=== PATIENT | male | born 1975 | race Caucasian/White ===

== ENCOUNTER 2019-09-25 18:39 | Day surgery (SDC) | payer BC ==
[~2019-09-25 18:39] MED LIST: Dexamethasone 20 MG/5 ML VIAL ONE; EPHEDRINE 25 MG/5 ML SYRINGE ONE; Glycopyrrolate 0.2 MG/ML 5 ML SYRINGE ONE; Ketorolac Tromethamine 30 MG/ML VIAL ONE; Lidocaine 1% PF 5 ML VIAL ONE; Ondansetron PF 4 MG/2 ML Vial ONE; PROPOFOL 200 MG/20 ML VIAL ONE; Rocuronium Bromide 10 MG/ML (10ML VIAL) ONE; Succinylcholine Chloride 20 MG/ML 10 ml SYRINGE FS ONE
[2019-09-25] MEDS ORDERED: Bacitracin Zinc Ointment 30 gm TUBE ONE (20:35)
[2019-09-25] MEDS ORDERED: Sodium Chloride 0.9% 30 ML ONE ×2 (20:35→22:17)
[2019-09-25] MEDS ORDERED: Adacel (T-DAP) 0.5 ML SYRINGE ONE (20:37)
--- NOTE | 2019-09-25 20:40 | RAD ---
LEFT INDEX FINGER RADIOGRAPHS THREE VIEWS: 09/25/19 PROVIDED CLINICAL HISTORY: Laceration. FINDINGS: On the lateral view, there is material of increased density seen within the soft tissues overlying th e dorsal aspects of the middle phalanx of the index digit. There is a somewhat deficit appearance to the underlying cortical bone, which may reflect osseous injury. Adjacent soft tissue swelling and sof t tissue irregularity. Alignment appears anatomic. Joint spaces appear preserved. IMPRESSION: Material of increased density within the soft tissues overlying the dorsal aspect of the proximal as pects of the middle phalanx of the index digit. This could reflect soft tissue foreign bodies. Given the somewhat deficient appearance of the underlying cortical bone, this could also reflect bone fragm ents related to osseous injury. POS: [id number]
[2019-09-25] MEDS ORDERED: Fentanyl 100 MCG/2 ML VIAL ONE (20:49)
[2019-09-25] MEDS ORDERED: Lidocaine 2% Jelly 5 ML TUBE ONE (20:49)
[2019-09-25] MEDS ORDERED: Bupivacaine PF 0.5% 30 ML VIAL ONE (20:54)
[2019-09-25] MEDS ORDERED: Thrombin 5000 UNITS/5 ML VIAL ONE (20:54)
--- NOTE | 2019-09-26 00:34 | OP ---
DATE OF PROCEDURE: 09/25/2019 PREOPERATIVE DIAGNOSES: 1. Open left index finger proximal phalangeal joint. 2. Open middle phalanx dorsal base avulsion (central slip avulsion). 3. Open P1 base fracture, 2 to 3 mm loss of chondral bone, articular surface intact, collaterals intact. 4. Zone II lateral band laceration, radial aspect. 5. Zone III central slip laceration with open joint underneath. 6. 3 cm wound laceration with tendon involvement, minimal contamination of subcutaneous particles and wound edge particles. POSTOPERATIVE DIAGNOSES: 1. Open left index finger proximal phalangeal joint. 2. Open middle phalanx dorsal base avulsion (central slip avulsion). 3. Open P1 base fracture, 2 to 3 mm loss of chondral bone, articular surface intact, collaterals intact. 4. Zone II lateral band laceration, radial aspect. 5. Zone III central slip laceration with open joint underneath. 6. 3 cm wound laceration with tendon involvement, minimal contamination of subcutaneous particles and wound edge particles. COMPLICATION: None. PROCEDURES PERFORMED: 1. Debridement of wound. 2. Debridement of open joint. 3. Debridement of open fracture, proximal phalanx. 4. Debridement of open fracture, middle phalanx. 5. Open treatment of proximal phalanx fracture. 6. Open treatment of middle phalanx fracture. 7. C-arm supervision. 8. Extensor tendon repair, lateral band, zone II. 9. Central slip reconstruction back to bone using anchor, zone III. ESTIMATED BLOOD LOSS: 10 mL. TOURNIQUET TIME: 47 minutes. INJECTABLE: 15 mL of 0.5% Marcaine without epinephrine at the metacarpophalangeal joint level. INDICATIONS FOR PROCEDURE: The patient had a chainsaw contact his hand while working in his yard today. He showed weakness with resisted extension and an x-ray that showed a small avulsion fracture open fracture with probable open joint. DESCRIPTION OF PROCEDURE: After successful prepping and draping, time-out was done appropriately. We then injected him with 15 mL of 0.5% Marcaine at the metacarpophalangeal joint level block, exsanguinated the limb and inflated tourniquet to 250 mmHg pressure. He had a complex laceration in almost a Z pattern with a 1 cm transverse limb, 5 mm radial side longitudinal limb and then the oblique limb extended distally. We opened each one at the distal aspect by 6 mm and then the proximal aspect by 2 cm to expose the entire mechanism. There was small amount of particle contamination subcutaneously, in the fat along the suture line, but none in the joint, so he had a grade 2 contamination and we felt we could debride this and perform repairs but we left the central portion of his laceration open. We then finished our debridement using the following techniques: 1. Excision technique. 2. Used tenotomy scissors, Adson's, Freeborn blade, 11 blade knife, tenotomy scissors, a total of 6 L of irrigation with antibiotics inside. Pulsavac was used as well. 3. It was down to including the joint. His avulsion fractures were debrided as well using the curette and we found he had no radial collateral instability. His central slip laceration with wound debrided and a small comminuted fracture removed was an oblique from the center of the central slip radially involving the radial 40% of the central slip itself, from its bony attachment by loss. The joint capsule was also involved in a 2 to 3 mm area. There was an oblique laceration beginning 5 mm distal to the joint of the radial lateral band as well. The collateral ligament on the side was intact with no instability. Once we finished the fracture debridement and irrigation, an open treatment by excision of the fragments that were too comminuted to fix, we then began the repair. C-arm was brought to the field to determine that we had enough room to place the mini anchor in an oblique pattern in both the frontal sagittal plane so as not to violate the volar side cortex. This was done 2 mm from the edge of the joint and then we tied the central slip piece into the debrided bone in a small trough with the finger in 10 degrees hyperextension PIP joint. Using the same hyperextension, we then repaired with 4-0 Prolene in multiple [id number] sutures in the radial lateral band. There was still no instability. When we performed the tenodesis, the finger went into full extension at all joints. We then deflated the tourniquet. We saw no incongruity of the joint, so we did not have to pin the joint and felt we had adequate enough repair with only 50% central slip laceration. We did close the portion of the wound. We created leaving the primary wound open with small Adaptic under the flap to allow for drainage to help prevent infection but I closed this grade 2 wound initially. The hemostasis was obtained. The digit tip was pink to include I have to place it in a splint that involved DIP and PIP joint all way to the dorsal aspect of the MP joint. The patient left the operating room without evidence of anesthetic or operative complication and appropriate splint with good circulation. Job ID: [id number]
--- NOTE | 2019-09-26 07:48 | RAD ---
Exam: XR Finger(s) Lt Min 2 View HISTORY: Trauma. Laceration to left index finger secondary to chainsaw injury. Foreign body washout and tendon repair. COMPARISON: 09/25/2019 at 2025 hours FINDINGS/IMPRESSION: 2 intraoperative fluoroscopic images left index finger are provided. Chalmers screw overlies the base o f the middle phalanx left index finger. Correlation with intraoperative findings is recommended. Fluoroscopy: Time-5.4 seconds Dose-0.19 mGy
== END 2019-09-26 00:06 | disposition home or self-care (01) ==
LOC: ERS 18:39 → SDC/OP 21:48
PROVIDERS: ATTEND Orthopaedic Surgery Hand Surgery
PROC: 0LS80ZZ Reposition Left Hand Tendon, Open Approach (ICD-10-PCS; principal; 2019-09-25)
PROC: 0MQ80ZZ Repair Left Hand Bursa and Ligament, Open Approach (ICD-10-PCS; principal; 2019-09-25)
PROC: 0PBV0ZZ Excision of Left Finger Phalanx, Open Approach (ICD-10-PCS; principal; 2019-09-25)
DX: S66.301A Unspecified injury of extensor muscle, fascia and tendon of left index finger at wrist and hand level, initial encounter (principal); S63.631A Sprain of interphalangeal joint of left index finger, initial encounter; S62.631B Displaced fracture of distal phalanx of left index finger, initial encounter for open fracture; S62.621B Displaced fracture of middle phalanx of left index finger, initial encounter for open fracture; Z88.0 Allergy status to penicillin; W29.3XXA Contact with powered garden and outdoor hand tools and machinery, initial encounter; Y92.096 Garden or yard of other non-institutional residence as the place of occurrence of the external cause
CPT/HCPCS: 76000; 90471; 90715; C1713; J0690; J1100; J1885; J2001; J2405; J2704; J3010; J3370; Q4049; S0020